=== PATIENT | female | born 2000 | race Caucasian/White ===

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

== ENCOUNTER 2021-06-30 02:10 | Inpatient (IN) ==
[2021-06-30] MEDS ORDERED: OXYTOCIN 30 UNITS/500 ML BAG IV PRN (03:31)
--- NOTE | 2021-06-30 03:39 | History & Physical Report ---
Date of Service June 30, 2021 Assessment & Plan (1) 39 weeks gestation of : (2) Normal labor: Plan: patient in labor and rom. admit. fetus category one. expectant management. epidural on demand. gbs negative. anticipate . History of Present Illness Chief Complaint: rom and contractions Primary Care Provider: Vita Willie Patient is a 21yowf with iup at 39 6/7 who presents to labor and delivery with rom, clear noted at about 1 am with the onset of contractions shortly thereafter. Had been three in the office. +fm. uncomplicated. labs--O-/ab-/ri/rprnr/hepb-/hiv-/gbs neg/gc/ct neg/ 2 hr gtt x 2 neg Allergies Allergy/AdvReac Type Severity Reaction Status Date / Time No Known Allergies Allergy Verified 06/24/21 13:32 Home Medications Medication Instructions Recorded Confirmed Type albuterol sulfate 90 mcg/actuation INHALATION 11/19/20 06/24/21 History aerosol inhaler prenat.vits,kenji,[id number] 1 tab PO DAILY 11/19/20 06/24/21 History Patient History Medical History Varicella vaccination Surgical History No history of previous surgery Family History Grandmother (Maternal) Breast cancer Grandmother (Paternal) Breast cancer Father Hypertension Hypercholesteremia Mother Rheumatoid arthritis Denies family history of Ovarian cancer Colorectal cancer Social History (Updated 11/19/20 @ 11:15 by Tamie Bustillos) Smoking Status: Never smoker Second Hand Exposure: No; Do You Dip or Chew Tobacco: No; Tobacco Cessation Education Requested by Patient: No Hx Alcohol Use: No Hx Substance Use: No Preferred Language: [place] Communication Ability: Effective 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 Beliefs That Will Affect Care: None marital status: Single marital status details: Juan Jose Vargas (22) [phone] Current Living Situation: Family Current Living Situation Comment: lives with daughter current occupational status: employed 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- [employer] Other Information That Helps Us Care for You: No Feels Safe at Home: Yes Safety Concerns: Feels Safe At This Time Assistive Devices: None OB History g1--, 3/, 7#14oz BAND AND CUFF CUTTER History noncontributory Physical Exam Constitutional: WD/WN, vitals as above Gastrointestinal (Abdomen): soft, nt, gravid Psychiatric: A+Ox3, euthymic affect Genitourinary: sse--small amount of fluid, +n/p sve--5/80/-2 toco--q4-6min efm--135 with mod variability, accels to 160s, no decels Results & Data ([facility]) Vital Signs (Past 12 Hours) Vital Signs Temp Pulse Resp BP 06/30/21 02:43 36.8 C 18 06/30/21 02:35 93 H 130/84 06/30/21 02:34 36.8 C 18 Coding Level of Care Code None Diagnoses 39 weeks gestation of Z3A.39 Normal labor O80; Z37.9
[2021-06-30 04:14] LABS: Hematocrit (blood only) 35.3 % (37-47); Hemoglobin 11.9 g/dL (12.0-16.0); Mean Corpuscular Hemoglobin 28.1 pg (25-34); Mean Corpuscular Hgb Conc 33.7 g/dL (32-36); Mean Corpuscular Volume 83.5 fL (80-100); Mean Platelet Volume 10.9 fL (7.4-10.4); Platelet Count 268 K/uL (130-400); RDW Coefficient of Variation 13.2 % (11.5-14.5); RDW Standard Deviation 39.6 fL (36.4-46.3); Red Blood Count 4.23 M/uL (4.2-5.4); White Blood Count 10.56 K/uL (4.8-10.8)
[2021-06-30] MEDS: LACTATED RINGER'S 1,000 ML IV PRN ×2 (04:15→05:23)
[2021-06-30] MEDS ORDERED: SODIUM CHLORIDE 0.9% INJ 10 ML VIAL ONE (04:19)
[2021-06-30] MEDS ORDERED: ePHEDrine sulfate 50 MG/ML AMP ONE (04:19)
[2021-06-30] MEDS ORDERED: BUPIVACAINE 0.25% 30 ML VIAL ONE (04:19)
[2021-06-30] MEDS ORDERED: fentaNYL citrate 100 MCG/2 ML VIAL ONE (04:19)
[2021-06-30] MEDS ORDERED: fentaNYL 2MCG/ML ROPIVACAINE 1.25MG/ML 100 ML BAG EPI ONE (04:20)
--- NOTE | 2021-06-30 05:26 | Anesthesiology Consultation ---
Date of Service June 30, 2021 Assessment & Plan Chart Review Chart Review: Acceptable Risk for Labor Epidural Consults Requested none History Height/Weight Height: 5 ft 3 in Weight: 86.183 kg Allergies Allergy/AdvReac Type Severity Reaction Status Date / Time No Known Allergies Allergy Verified 06/24/21 13:32 Medications Home Medications Medication Instructions Recorded Confirmed Last Taken albuterol sulfate 90 mcg/actuation INHALATION 11/19/20 06/24/21 Unknown aerosol inhaler prenat.vits,kenji,[id number] 1 tab PO DAILY 11/19/20 06/24/21 Unknown Active Medications Generic Name Dose Route Start Last Admin Trade Name Freq PRN Reason Stop Dose Admin Lactated Ringer's 1,000 mls @ 125 mls/hr 06/30/21 03:34 06/30/21 05:23 Lr IV 07/02/21 03:33 999 mls/hr .Q8H PRN Administration L&D Protocol Protocol Past Medical History Medical History Varicella vaccination Past Family History Family History Grandmother (Maternal) Breast cancer Grandmother (Paternal) Breast cancer Father Hypertension Hypercholesteremia Mother Rheumatoid arthritis Denies family history of Ovarian cancer Colorectal cancer Past Surgical History Surgical History No history of previous surgery Social History Smoking Status: Never smoker Do You Dip or Chew Tobacco: No Hx Alcohol Use: No Hx Substance Use: No substance use type: does not use Physical Exam Vital Signs Last Vital Signs Temp 36.8 C 06/30/21 02:43 Pulse 88 06/30/21 05:24 Resp 18 06/30/21 02:43 BP 123/78 06/30/21 05:24 Pulse Ox 98 06/30/21 05:22 Testing Laboratory Results 06/30/21 04:03
[2021-06-30] MEDS ORDERED: ePHEDrine sulfate 50 MG/ML AMP IV PRN (05:28)
[2021-06-30] MEDS ORDERED: fentaNYL 2MCG/ML ROPIVACAINE 1.25MG/ML 100 ML BAG EPI PRN (05:28)
[2021-06-30] MEDS ORDERED: NALBUPHINE HCL INJ 10 MG/ML AMP IV PRN (05:28)
[2021-06-30] MEDS ORDERED: NALOXONE HCL 1 MG in SODIUM CHLORIDE 0.9% 1000ML 1,000 ML IV PRN (05:28)
[2021-06-30] MEDS ORDERED: diphenhydrAMINE 50 MG/ML VIAL IV PRN (05:28)
[2021-06-30] MEDS ORDERED: NALOXONE HCL 0.4 MG/1 ML VIAL/CARP IV PRN (05:28)
--- NOTE | 2021-06-30 07:34 | Labor Progress Brief Note ---
Date of Service June 30, 2021 Subjective comfortable Assessment & Plan (1) Normal labor: Plan: labor down and then begin pushing. fetus category one. anticipate . Physical Exam Physical Exam: cx--ant lip/c/0 toco--q 3-6 efm--120s with mod variability, accels to 160s, no decels Results & Data ([facility]) Vital Signs (Past 12 Hours) Vital Signs Temp Pulse Resp BP Pulse Ox 06/30/21 07:28 87 115/62 06/30/21 07:27 94 H 97 06/30/21 07:22 72 96 06/30/21 07:17 88 95 06/30/21 07:12 74 106/55 L 96 06/30/21 07:07 81 96 06/30/21 07:06 79 94 06/30/21 07:05 36.7 C 18 06/30/21 07:02 83 96 06/30/21 07:00 36.7 C 18 06/30/21 06:57 77 108/56 L 96 06/30/21 06:52 75 96 06/30/21 06:47 76 95 06/30/21 06:43 88 118/56 L 06/30/21 06:42 84 96 06/30/21 06:37 95 H 97 06/30/21 06:32 83 95 06/30/21 06:29 78 94 06/30/21 06:28 76 119/72 06/30/21 06:27 87 94 06/30/21 06:24 87 94 06/30/21 06:22 85 95 06/30/21 06:17 79 94 06/30/21 06:15 73 94 06/30/21 06:12 74 122/74 95 06/30/21 06:10 76 94 06/30/21 06:07 78 94 06/30/21 06:05 76 94 06/30/21 06:02 88 95 06/30/21 05:57 80 121/73 95 06/30/21 05:56 86 94 06/30/21 05:52 80 95 06/30/21 05:47 81 95 06/30/21 05:42 86 119/73 96 06/30/21 05:37 93 H 96 06/30/21 05:32 80 97 06/30/21 05:30 18 06/30/21 05:27 88 113/68 97 06/30/21 05:24 88 123/78 06/30/21 05:22 81 98 06/30/21 05:21 76 124/73 06/30/21 05:18 85 130/75 06/30/21 05:17 87 99 06/30/21 05:13 71 135/80 06/30/21 05:12 76 100 06/30/21 05:07 88 100 06/30/21 05:02 94 H 100 06/30/21 04:57 100 H 100 06/30/21 04:45 82 100 06/30/21 04:40 82 100 06/30/21 04:38 78 144/86 H 06/30/21 04:37 80 155/102 H 06/30/21 04:36 85 172/94 H 06/30/21 04:35 85 100 06/30/21 02:43 36.8 C 18 06/30/21 02:35 93 H 130/84 06/30/21 02:34 36.8 C 18 Coding Level of Care Code None Diagnoses Normal labor O80; Z37.9
[2021-06-30] MEDS ORDERED: HYDROCORTISONE ACETATE 25 MG SUPP PR PRN (08:53)
[2021-06-30] MEDS ORDERED: ACETAMINOPHEN 325 MG TAB PO PRN (08:53)
[2021-06-30] MEDS ORDERED: oxyCODONE/ACETAMINOPHEN 5mg/325mg TAB PO PRN (08:53)
--- NOTE | 2021-06-30 08:56 | Delivery Summary ---
Vaginal Delivery Summary Date of Service June 30, 2021 Vaginal Delivery Summary and 1st Degree LAC Pre-operative Diagnosis: at 39 6/7 weeks srom active labor Post-operative Diagnosis: same Procedure: epidural periclitoral tear with repair EBL: 400cc Anesthesia: epidural Procedure: The patient presented to labor and delivery with srom and active labor. She received an epidural. She then progressed to c/c/+2. The patient pushed for 9 minutes to deliver a viable female infant in heron position. The nose and mouth were bulb suctioned on the perineum and the rest of the infant was then delivered without difficulty. The baby was vigorous. The nose and mouth were again bulb suctioned and the infant was placed in the maternal abdomen for drying and attention. Cord was clamped and cut at one minute of life. Cord blood and segment obtained. Placenta delivered spontaneous, intact with a three vessel cord. Cervix/sulci/rectum/perineum were intact. A periclitoral laceration was repaired with several interrupted sutures of 4-0 v icryl. Hemostasis obtained with dilute pitocin and fundal massage. Apgars were 9/9. Mother and baby doing well at the end of the delivery. [facility] Vaginal Delivery Charge Delivery Type Details: and 1st Degree LAC
--- NOTE | 2021-06-30 10:27 | Anesthesia Procedure Note ---
Date of Service June 30, 2021 Anesthesia Post Epidural Note Vital Signs Vital Signs: Temp Pulse Resp BP Pulse Ox 36.7 C 80 18 129/66 96 06/30/21 07:05 06/30/21 09:57 06/30/21 07:05 06/30/21 09:57 06/30/21 08:32 Notes Mental Status: alert / awake / arousable and participated in evaluation Patient Amnestic to Procedure: Yes Nausea / Vomiting: adequately controlled Pain: adequately controlled Airway Patency, RR, SpO2: stable & adequate BP & HR: stable & adequate Hydration State: stable & adequate Neuraxial Anesthesia: was administered and sensory block is resolving Anesthetic Complications: no major complications apparent and Pt Satisfied with anesthetic care
[2021-06-30] MEDS ORDERED: IBUPROFEN 600 MG TAB PO PRN (19:14)
[2021-06-30] MEDS ORDERED: SUPERCREAM 0.870% 15 GM JAR EXT PRN (19:14)
[2021-06-30] MEDS ORDERED: BENZOCAINE 20% AER SPR 82.5 GM CAN EXT PRN (19:14)
[2021-06-30] MEDS: DOCUSATE SODIUM 100 MG CAP PO SCH (20:02)
[2021-07-01 06:49] LABS: Hematocrit (blood only) 25.8 % (37-47); Hemoglobin 8.5 g/dL (12.0-16.0)
--- NOTE | 2021-07-01 07:32 | Obstetrical Progress Note ---
Date of Service <Yair Schmidt DO - Last Filed: 07/01/21 07:35> July 01, 2021 Assessment & Plan <Yair Schmidt DO - Last Filed: 07/01/21 07:35> (1) care following vaginal delivery: 21 yo PPD 1 s/p at 40 weeks -Continue routine care, D/C today. -Vitals reviewed- HDS, afebrile -O-, GBS negative, Rubella immune; Rhogam given 04/08/21 -Encourage ambulation, regular diet -Pain control with ibuprofen, acetaminophen PRN -Encouraged -F/u in 6 weeks with OB <Elba Osei MD, FACOG - Last Filed: 07/01/21 07:36> (1) care following vaginal delivery: Subjective <Yair Schmidt DO - Last Filed: 07/01/21 07:35> Ambulation: ambulating normally Voiding: no voiding problems and no incontinence Passing Gas:: Yes Diet Tolerance:: regular diet Lochia:: Moderate Feeding Type:: breast feeding Current Pain Level(1-10): 0 Review of Systems All systems reviewed & are unremarkable except as noted in HPI & below Physical Exam <Yair Schmidt DO - Last Filed: 07/01/21 07:35> General: Alert, oriented, no acute distress Cardiac: Regular rate and rhythm, normal S1, S2. No murmurs appreciated. Respiratory: Clear to auscultation b/l with good air flow entry, symmetric chest rise and fall. No wheezes or crackles. No increased work of breathing or accessory muscle use Abdomen: Soft, nontender, nondistended. Fundus firm and palpable at _ cm below umbilicus. No guarding or rebound. Skin: No rashes or lesions Extremities: Warm, dry, well-perfused with capillary refill <2s b/l. No lower extremity edema, erythema or swelling. Negative Fred's sign b/l. Results & Data ([facility]) <Yair Schmidt DO - Last Filed: 07/01/21 07:35> Vital Signs (Past 12 Hours) Vital Signs Temp Pulse Resp BP Pulse Ox 07/01/21 04:10 36.7 C 78 18 102/65 98 06/30/21 23:00 36.8 C 80 16 122/80 98 06/30/21 19:35 36.7 C 79 18 133/76 98 <Elba Osei MD, FACOG - Last Filed: 07/01/21 07:36> Co-Signing Physician Notes Resident Physician Supervision Note: I interviewed and examined the patient. Discussed with Dr. Schmidt and agree with findings and plan as documented in the note. Any exceptions or clarifications are listed here: Doing well. Plan d/c. Instructions given. Documented By: Elba Osei MD, FACOG
[2021-07-01] MEDS: DOCUSATE SODIUM 100 MG CAP PO SCH (07:38)
[2021-07-01] MEDS ORDERED: PRENATAL VITAMIN 1 TAB PO SCH (09:00)
== END 2021-07-01 13:00 | disposition home or self-care (01) | DRG 807 ==
LOC: OPB 02:10 → 4S1 02:17 → 4S2 10:24